=== PATIENT | male | born 1945 | race Two or more races ===

== ENCOUNTER 2024-07-01 23:10 | Emergency (ER) | payer OTHER ==
[~2024-07-01] VITALS: Ht 165.1 cm; Wt 84.8 kg
[2024-07-01] MEDS ORDERED: METOCLOPRAMIDE HCL 10 MG/2 ML VIAL ONE (23:34)
[2024-07-01] MEDS ORDERED: MECLIZINE HCL 25 MG TABLET ONE (23:34)
[2024-07-01] MEDS: METOCLOPRAMIDE HCL 10 MG/2 ML VIAL IV ONE (23:39)
[2024-07-01] MEDS: IV NS 0.9% 1,000 ML BAG IV ONE (23:39)
[2024-07-01] MEDS: MECLIZINE HCL 25 MG TABLET PO ONE (23:39)
[2024-07-01 23:48] LABS: BASOPHILS % (AUTO) 0.7 % (0.0-2.0); EOSINOPHILS # (AUTO) 0.2 K/uL (0.0-0.7); EOSINOPHILS % (AUTO) 2.9 % (0.0-6.0); HEMATOCRIT 45 % (39-51); HEMOGLOBIN 15.9 g/dL (13.5-17.5); LYMPHOCYTES # (AUTO) 2.3 K/uL (0.8-4.8); LYMPHOCYTES % (AUTO) 32.6 % (20.0-44.0); MEAN CORPUSCULAR HEMOGLOBIN 34 PG (26.0-33.0); MEAN CORPUSCULAR HGB CONC 35 g/dl (31.0-36.0); MEAN CORPUSCULAR VOLUME 96 fL (80-96); MONOCYTES # (AUTO) 0.9 K/uL (0.1-1.30); MONOCYTES % (AUTO) 12.9 % (2.0-12.0); NEUTROPHILS # (AUTO) 3.6 K/uL (1.8-8.9); NEUTROPHILS % (AUTO) 50.9 % (43.0-81.0); PLATELET COUNT (AUTO) 257 K/uL (150-450); RED BLOOD CELL COUNT(AUTO) 4.71 MIL/uL (4.5-6.0); RED CELL DISTRIBUTION WIDTH 12.6 % (11.5-15.0)
[2024-07-01 23:54] LABS: CALCIUM, SERUM 9.3 mg/dL (8.5-10.1); CREATININE 0.9 mg/dL (0.6-1.3); POTASSIUM 3.8 mmol/L (3.5-5.1)
[2024-07-02] MEDS ORDERED: AMLODIPINE BESYLATE 10 MG TABLET ONE (00:08)
[2024-07-02] MEDS: AMLODIPINE BESYLATE 5 MG TABLET PO ONE ×2 (00:09→02:34)
[2024-07-02] MEDS ORDERED: ONDANSETRON HCL/PF 4 MG/2 ML VIAL ONE (00:33)
[2024-07-02] MEDS: ONDANSETRON HCL/PF 4 MG/2 ML VIAL IV ONE (00:36)
[2024-07-02] MEDS ORDERED: AMLO-213 PO (02:07)
[2024-07-02] MEDS ORDERED: MECL-159 PO (02:07)
[2024-07-02] MEDS ORDERED: AMLODIPINE BESYLATE 5 MG TABLET ONE (02:33)
[2024-07-02] MEDS ORDERED: MECLIZINE HCL 25 MG TABLET ONE (02:33)
[2024-07-02] MEDS: MECLIZINE HCL 25 MG TABLET PO ONE (02:34)
[2024-07-02 02:45] VITALS: BP 165/68; TEMP 97.6; O2SAT 99
== END 2024-07-02 02:45 | disposition home or self-care (01) ==
LOC: ER 23:12
DX: H81.399 Other peripheral vertigo, unspecified ear (principal); I10 Essential (primary) hypertension; R11.2 Nausea with vomiting, unspecified; I48.91 Unspecified atrial fibrillation
CPT/HCPCS: 99284; 96374; 96361; 96375; 93005; 85025; 80048; 36415; J8597 ×2; J2765; J7030; A4223; J2405